=== PATIENT | female | born 1950 | race Two or more races ===

== ENCOUNTER 2019-03-02 20:20 | Emergency (ER) | payer MEDICARE ==
[~2019-03-02] VITALS: Ht 167.6 cm; Wt 80.7 kg
[~2019-03-02 20:20] MED LIST: inhaler
[2019-03-02 20:29] VITALS: BP 157/76
[2019-03-02] MEDS ORDERED: valACYclovir 500 MG TABLET. PO STA (20:37)
[2019-03-02] MEDS ORDERED: SMZ/TMP 800/160MG TABLET. PO ONE (20:45)
[2019-03-02] MEDS ORDERED: methylPREDNISolone SOD SUCC PF 125 MG/2 ML VIAL. IM ONE (20:45)
[2019-03-02] MEDS ORDERED: valACYclovir 500 MG TABLET. ONE (20:48)
[2019-03-02] MEDS ORDERED: methylPREDNISolone SOD SUCC PF 125 MG/2 ML VIAL. ONE (20:48)
[2019-03-02] MEDS ORDERED: PRED50TA PO (20:51)
[2019-03-02] MEDS ORDERED: SULF1TAB24 PO (20:51)
[2019-03-02] MEDS ORDERED: VALA10005 PO (20:51)
--- NOTE | 2019-03-02 20:52 | PHYS DOC ---
Past History Past Medical History: Asthma, Sinusitis, Other Past Surgical History: Other Alcohol Use: None Drug Use: None Adult General Chief Complaint Chief Complaint: SKIN RASH/ABSCESS HPI HPI Patient is a 69-year-old female who presents with complaint of diffuse rash. Patient states the rash that started around her mid section and has progressively spread to her extremities and onto her face as well. Patient was seen at [place] 2 days ago and received a shot of steroids and she states that she was supposed to get a prescription for oral steroids but she states that they never gave it to her. She complains of itching all over. She's not sure as to the cause of the rash. She denies any exposure to poison oak or IV. Patient also denies having had any change to soaps or detergents at home.[] Review of Systems Review of Systems Constitutional: Denies fever or chills [] Respiratory: Denies cough or shortness of breath [] Cardiovascular: No additional information not addressed in HPI [] Integument: Positive diffuse rash[] Current Medications Current Medications Current Medications Medications (Trade) Dose Ordered Sig/Ivan Start Time Stop Time Status Last Admin Dose Admin Methylprednisolone Sodium Succinate (SOLU-Medrol 125MG VIAL) 250 mg 1X ONCE 03/02/19 20:45 03/02/19 20:46 UNV Valacyclovir HCl (Valtrex) 1,000 mg 1X STAT 03/02/19 20:37 03/02/19 20:38 UNV Allergies Allergies Allergies Coded Allergies Type Severity Reaction Last Updated Verified No Known Drug Allergies 04/10/15 No Physical Exam Physical Exam Constitutional: Well developed, well nourished, no acute distress, non-toxic appearance. [] Cardiovascular:Heart rate regular rhythm, no murmur [] Lungs & Thorax: Bilateral breath sounds clear to auscultation [] Skin: There is a circumferential vesicular rash noted to the mid truncal region with spreading to the proximal lower extremities as well as bilateral forearms, face and neck. [] Extremities: No tenderness, no cyanosis, no clubbing, ROM intact, no edema. [] Neurologic: Alert and oriented X 3, no focal deficits noted. [] Current Patient Data Vital Signs Vital Signs Date Time Temp Pulse Resp B/P (MAP) Pulse Ox O2 Delivery O2 Flow Rate FiO2 03/02/19 20:29 98.3 73 18 94 EKG EKG [] Radiology/Procedures Radiology/Procedures [] Course & Med Decision Making Course & Med Decision Making Pertinent Labs and Imaging studies reviewed. (See chart for details) [] Dragon Disclaimer Dragon Disclaimer This electronic medical record was generated, in whole or in part, using a voice recognition dictation system. Departure Departure: Impression: Primary Impression: Dermatitis Disposition: HOME, SELF-CARE Condition: STABLE Referrals: JOSE CARPIO DO (PCP) Patient Instructions: Contact Dermatitis Scripts Sulfamethoxazole/Trimethoprim (BACTRIM DS TABLET) 1 Each Tablet 1 TAB PO BID for rash, #20 TAB Prov: STEPHEN BERNARD Jr. DO 03/02/19 Valacyclovir Hcl (VALTREX) 1,000 Mg Tablet 1 TAB PO TID for rash, #21 TAB Prov: STEPHEN BERNARD Jr. DO 03/02/19 Prednisone (PREDNISONE) 50 Mg Tablet 1 TAB PO DAILY for rash, #5 TAB Prov: STEPHEN BERNARD Jr. DO 03/02/19 STEPHEN BERNARD Jr. DO March 02, 2019 20:52
== END 2019-03-02 21:00 | disposition home or self-care (01) ==
LOC: ER 20:20
DX: L30.9 Dermatitis, unspecified (principal); J45.909 Unspecified asthma, uncomplicated
CPT/HCPCS: 96372; 99283; J2930